=== PATIENT | male | born 1935 | race Caucasian/White ===

== ENCOUNTER 2016-10-14 00:11 | Emergency (ER) | payer OTHER ==
[2016-10-14 00:20] VITALS: RESP 20
[2016-10-14 01:07] VITALS: PULSE 94; TEMP 99; O2SAT 97
[2016-10-14 01:22] VITALS: BP 174/89
== END 2016-10-14 01:28 | disposition home or self-care (01) | DRG 923 ==
LOC: ED 00:11
DX: Z04.1 Encounter for examination and observation following transport accident (principal); V68.5XXA Driver of heavy transport vehicle injured in noncollision transport accident in traffic accident, initial encounter
CPT/HCPCS: 70450; 72125; 99283